=== PATIENT | male | born 1950 | race Two or more races ===

== ENCOUNTER 2022-03-16 16:36 | Emergency (ER) | payer MEDICARE, OTHER ==
[~2022-03-16] VITALS: Ht 165.1 cm; Wt 84.4 kg
[2022-03-16 17:13] VITALS: BP 132/75
== END 2022-03-16 20:27 | disposition home or self-care (01) ==
LOC: ER 16:36
DX: S00.01XA Abrasion of scalp, initial encounter (principal); I10 Essential (primary) hypertension; E11.9 Type 2 diabetes mellitus without complications; W22.8XXA Striking against or struck by other objects, initial encounter; Y93.89 Activity, other specified; Y92.89 Other specified places as the place of occurrence of the external cause; Y99.8 Other external cause status
CPT/HCPCS: 70450